=== PATIENT | male | born 1960 | race American Indian/Alaskan Native ===

== ENCOUNTER 2022-06-06 12:00 | Outpatient (CLI) | payer MEDICAID, SELFPAY ==
[2022-06-06 12:20] VITALS: BMI 27.9
--- NOTE | 2022-06-06 12:20 | ECG_ITS ---
[facility] Test Date: 2022-06-06 Pat Name: Davis David Department: Room: Gender: Male Asw/Asuw Tactical Air Controller: Judit Bobo : 1960 Requested By: Nikki Tai Order Number: [id number] Jyotsna MD: Magdiel Kovacs M.D. Interpretive Statements NAME OF STUDY: TREADMILL STRESS TEST INDICATION: [Shortness of Breath] EXERCISE DATA: The patient was exercised by Jona protocol. Baseline heart rate was 63 beats per minute. Baseline blood pressure was 150/84 millimeters of mercury. Target heart rate was 134 beats per minute. Maximum heart rate achieved was 136, which was 101% of the target heart rate. Maximum blood pressure was 228/82 millimeters of mercury. Total exercise time was 8 minutes and 4 seconds. Maximum METs achieved was 10.2. The reason for ending the test was maximal effort achieved. The patient complained of shortness of breath during the stress test, which then resolved at the end of the test. ELECTROCARDIOGRAM: BASELINE: Showed sinus rhythm, normal axis, no significant ST-T changes at the baseline noted. [] EXERCISE: At the peak exercise level, [] No significant ST-T changes suggestive of ischemia noted. [] RECOVERY: During the recovery period, heart rate dropped appropriately. No significant ST-T changes in the recovery suggestive of ischemia noted. [] CONCLUSION: 1. Exercise capacity good 2. Heart rate response was appropriate 3. Blood pressure response was hypertensive 4. Symptoms not suggestive of ischemia. 5. Stress test does not suggest ischemia Electronically Signed On 06-19-2022 15:05:53 CDT by Magdiel Kovacs M.D. [id number]
[2022-06-06 12:55] VITALS: BP 173/77; PULSE 83
== END 2022-06-06 12:01 | disposition home or self-care (01) ==
LOC: CDL 12:02
PROVIDERS: PCP Family Medicine; Visit Provider Physician Assistant
DX: R06.02 Shortness of breath (principal)
CPT/HCPCS: 93017

== ENCOUNTER 2022-07-15 07:18 | Day surgery (SDC) | payer MEDICAID, SELFPAY ==
[2022-07-13 11:47] VITALS: BMI 28.7
[2022-07-15 07:40] VITALS: BP 154/84; PULSE 73; RESP 16; TEMP 36.4; O2SAT 97
[2022-07-15] MEDS: sodium chloride 0.9% 1,000 ML 30 ML IV (08:11)
--- NOTE | 2022-07-15 08:29 | ANES.PREANE2 ---
Pre-Anesthetic Assessment Height/Weight: Height 1.78 m Weight 90.718 kg Temp Pulse Resp BP Pulse Ox O2 Del Method 97.6 F 73 16 154/84 97 Room Air 07/15/22 07:40 07/15/22 07:40 07/15/22 07:40 07/15/22 07:40 07/15/22 07:40 07/15/22 07:40 Operation Date: 07/15/22 09:00 Proposed Procedures p 12706 egd w/balloon dialation 35246 colon R13.10,, Z86.010(Not Applicable) - Luc Byrnes DO s Colonoscopy(Not Applicable) - Luc Byrnes DO Familial anesthetic complications: None Was Beta Apolonia taken within 24 hours: N/A Was Clonidine taken within 24 hours: N/A Last intake: Intake Last Liquid Date 07/14/22 Last Liquid Time 22:00 Last Solid Date 07/13/22 Last Solid Time 21:00 Social No alcohol and No tobacco Exam alert, oriented x 3, clear to auscultation bilaterally and regular rate & rhythm Airway Submandibular: within normal limits Cervical ROM: within normal limits Mallampati: Class II Dentition: full History/ROS No significant history except as noted and No significant complaints Pulmonary None reported CV/HEM Hypertension None reported Hepatic None reported GI Gastroesophageal Reflux Disease (Well controlled with meds, none this am) Metabolic Hyperlipidemia Musc/skel Lower Back Pain Neuropsych None reported Anesthetic Plan ASA status: 1 Anesthesia: Anesthesia Evaluation, General and MAC Risk of > 500 ml blood loss (7ml/kg in children): No Medications/Allergies Home Medications Medication Instructions Recorded Confirmed Last Taken Type atorvastatin 20 mg tablet 20 mg PO DAILY 06/14/22 07/13/22 07/14/22 History lisinopril 10 mg tablet 10 mg PO DAILY 06/14/22 07/13/22 07/14/22 History tamsulosin 0.4 mg capsule 0.4 mg PO DAILY 06/14/22 07/13/22 07/14/22 History pantoprazole 40 mg tablet,delayed 40 mg PO DAILY #30 tabs 07/15/22 Unknown Rx release (Protonix) Allergies Allergy/AdvReac Type Severity Reaction Status Date / Time No Known Allergies Allergy Unverified 07/15/22 07:58 Current Medications Generic Name Dose Route Start Last Admin Trade Name Freq PRN Reason Stop Dose Admin Sodium Chloride 1,000 mls @ 30 mls/hr 07/15/22 07:45 07/15/22 08:11 Sodium Chloride 0.9% IV 07/16/22 07:44 30 mls/hr .Q24H EDEN Administration PFSH Anesthesia Surgical History History of esophagogastroduodenoscopy (EGD) x2 Hx of colonoscopy with polypectomy 5 yrs Hx of left knee surgery x1 Hx of right knee surgery x2 manisus repair Hx of shoulder surgery Right Family History Father Cancer prostate cancer Social History Smoking and tobacco status: never smoked Alcohol intake: current Alcohol intake frequency: holidays/special occasions only Data Anesthesia Cardiac Studies: No Data to Display
--- NOTE | 2022-07-15 09:15 | PM.HP ---
Providers/Chief Complaint Primary Care Provider: Nikki Bob Chief Complaint: R13.10, Z86.010 History of Present Illness Davis David is a 62 year old male here for EGD and colonoscopy Medications/Allergies Home Medications Medication Instructions Recorded Confirmed Last Taken Type atorvastatin 20 mg tablet 20 mg PO DAILY 06/14/22 07/13/22 07/14/22 History lisinopril 10 mg tablet 10 mg PO DAILY 06/14/22 07/13/22 07/14/22 History omeprazole 20 mg capsule,delayed 20 mg PO DAILY 06/14/22 07/13/22 07/14/22 History release tamsulosin 0.4 mg capsule 0.4 mg PO DAILY 06/14/22 07/13/22 07/14/22 History Allergies Allergy/AdvReac Type Severity Reaction Status Date / Time No Known Allergies Allergy Unverified 07/15/22 07:58 PFSH Acute PFSH: Surgical History History of esophagogastroduodenoscopy (EGD) x2 Hx of colonoscopy with polypectomy 5 yrs Hx of left knee surgery x1 Hx of right knee surgery x2 manisus repair Hx of shoulder surgery Right Family History Father Cancer prostate cancer Social History Smoking and tobacco status: never smoked Alcohol intake: current Alcohol intake frequency: holidays/special occasions only Vitals/I&O/Wt Last Vital Signs Temp 97.6 F 07/15/22 07:40 Pulse 73 07/15/22 07:40 Resp 16 07/15/22 07:40 BP 154/84 07/15/22 07:40 Pulse Ox 97 07/15/22 07:40 O2 Del Method Room Air 07/15/22 07:40 Weight last 48 hrs Weight 200 lb A&P Assessment and plan (1) Dysphagia: (2) History of colon polyps: Plan EGD with possible balloon dilation and colonoscopy Attestations Medical Necessity Statement*: Home Coding Level of Care Code Acute Code for Chg Fwd Diagnoses Dysphagia R13.10 History of colon polyps Z86.010
[2022-07-15 09:47] VITALS: BP 83/53; PULSE 52; RESP 16; TEMP 36.1; O2SAT 91
[2022-07-15 10:08] VITALS: BP 104/46; PULSE 54; RESP 18; O2SAT 98
--- NOTE | 2022-07-15 14:20 | ANE.PACU2 ---
Inpatient post-anesthesia follow up: Airway intact: Yes Vital signs: Temperature 97.0 F Pulse Rate 54 Respiratory Rate 18 Blood Pressure 104/46 Pulse Oximetry 98 Oxygen Delivery Me thod Room Air Oxygen Flow Rate 4 Fraction of Inspir ed Oxygen Hydration adequate: Yes Nausea and vomiting: No Pain level: 2 Mental status: Baseline
== END 2022-07-15 10:30 | disposition home or self-care (01) ==
PROVIDERS: PCP Physician Assistant; Visit Provider Surgery
PROC: 0DJD8ZZ Inspection of Lower Intestinal Tract, Via Natural or Artificial Opening Endoscopic (ICD-10-PCS; CPT 45378; 2022-07-15 09:00)
DX: Z12.11 Encounter for screening for malignant neoplasm of colon (principal); R13.10 Dysphagia, unspecified; Z86.010 Personal history of colon polyps; I10 Essential (primary) hypertension; K21.9 Gastro-esophageal reflux disease without esophagitis; E78.5 Hyperlipidemia, unspecified; K22.2 Esophageal obstruction; K31.89 Other diseases of stomach and duodenum
CPT/HCPCS: 43239; 43249; 45378; 88305; J2704; J7030

== ENCOUNTER 2023-02-15 10:16 | Outpatient (CLI) | payer MEDICAID, SELFPAY ==
--- NOTE | 2023-02-15 10:19 | XRR_ITS ---
PROCEDURE INFORMATION: Exam: XR Left Shoulder Exam date and time: 02/15/2023 10:29 AM Age: 62 years old Clinical indication: Pain; Shoulder; Left; Additional info: Pain in left shoulder/stiffness. No history of trauma or recent surgery is provided. TECHNIQUE: Imaging protocol: Radiologic exam of the left shoulder. 2image(s) are provided. Views: 2 or more views. COMPARISON: No relevant prior studies available. FINDINGS: Bones/joints: Osseous alignment is maintained.No displaced fracture or dislocation is appreciated. There is some chronic degeneration about the superolateral aspect of the humeral head. There is some mild chronic degeneration of the acromioclavicular junction along with some subacromial spurring and narrowing. Lungs: No lobar consolidation is appreciated. There is minimal subsegmental atelectasis versus post inflammatory reticulonodular scarring demonstrated. Pleural space: No pneumothorax is appreciated. Soft tissues: No radiopaque foreign body or subcutaneous emphysema is appreciated. XR/XR shoulder LT min 2V* [id number] IMPRESSION: 1. There are chronic appearing degenerative changes of the shoulder suggestive of chronic rotator cuff disease.No fracture or dislocation is appreciated. 2. No lobar type consolidation is appreciated. There does appear to be some reticulonodular type scarring of the included portion of the left hemithorax. Consider two-view chest for further evaluation.
== END 2023-02-15 10:17 | disposition home or self-care (01) ==
LOC: RAD 10:17
PROVIDERS: PCP Nurse Practitioner Family; Visit Provider Nurse Practitioner Family
DX: M25.512 Pain in left shoulder (principal); M25.612 Stiffness of left shoulder, not elsewhere classified
CPT/HCPCS: 73030

== ENCOUNTER 2023-03-10 08:39 | Outpatient (CLI) | payer MEDICAID, SELFPAY ==
--- NOTE | 2023-03-10 08:45 | XR_ITS ---
WS: [id number] Exam: XR chest 2V* [id number] Date/Time of Exam: 03/10/2023 8:46 AM Reason For Exam: Abnormal findings No priors. Lungs are clear and fully inflated. Normal cardiomediastinal silhouette and regional bony elements. S cattered calcified granulomas. IMPRESSION: 1. Negative chest.
== END 2023-03-10 08:40 | disposition home or self-care (01) ==
LOC: RAD 08:42
PROVIDERS: PCP Nurse Practitioner Family; Visit Provider Nurse Practitioner Family
DX: R91.8 Other nonspecific abnormal finding of lung field (principal); R93.89 Abnormal findings on diagnostic imaging of other specified body structures
CPT/HCPCS: 71046

== ENCOUNTER 2023-07-21 06:43 | Outpatient (CLI) | payer MEDICAID, SELFPAY ==
--- NOTE | 2023-07-21 07:15 | MR_ITS ---
WS: [id number] MRI LEFT SHOULDER HISTORY: Chronic pain. COMPARISON: 02/15/2023 TECHNIQUE: Multiplanar sequences of the shoulder joint are submitted. Moderate AC joint arthritis. AC joint is narrowed with fluid. Small acromial and distal clavicular os teophytes encroaching upon the supraspinatus muscle. There is a small amount of fluid in the subacrom ial and subdeltoid bursa. Mild subacromial impingement by an osteophyte. No os acromion. Normal posit ion of the biceps tendon. Mild narrowing of the glenohumeral joint. No rotator cuff muscle atrophy or edema. Moderate tendinopa thy in the distal supraspinatus tendon and there is encroachment by the AC arthropathy. Findings are most consistent with tendinopathy along the articular surface distally but no tear is identified. Tiara faces of the supraspinatus tendon are frayed. Subscapularis tendon is intact. There is mild encroachm ent upon the distal subscapularis tendon by the coracoid osteophyte. Infraspinatus tendon is normal. Intrasubstance degeneration in the posterior labrum. Fraying of the superior and posterior labrum but no definite tear is identified. MR/MR shoulder LT wo con* [id number] IMPRESSION: 1. Moderate AC joint arthritis with encroachment upon the supraspinatus muscle . 2. Mild subacromial impingement. 3. Moderate tendinopathy involving the distal supraspinatus tendon with frayin g along the surfaces. There is no tear identified. 4. Degenerative changes in the labrum but no definite tear. 5. No muscle atrophy or edema.
== END 2023-07-21 06:44 | disposition home or self-care (01) ==
LOC: RAD 06:43
PROVIDERS: PCP Nurse Practitioner Family; Visit Provider Physician Assistant
DX: M75.42 Impingement syndrome of left shoulder (principal); M19.012 Primary osteoarthritis, left shoulder
CPT/HCPCS: 73221

== ENCOUNTER 2024-01-06 09:32 | Emergency (ER) | payer MEDICAID, SELFPAY ==
--- NOTE | 2024-01-06 09:34 | XRR_ITS ---
PROCEDURE INFORMATION: Exam: XR Right Shoulder Exam date and time: 01/06/2024 9:55 AM Age: 63 years old Clinical indication: Injury or trauma; Fall; Blunt trauma (contusions or hematomas); Shoulder; Right; Prior surgery; Surgery date: 6+ months; Surgery type: Rotator cuff TECHNIQUE: Imaging protocol: Radiologic exam of the right shoulder. Views: 2 or more views. COMPARISON: CR XR chest 2V* [id number] 03/10/2023 8:51 AM FINDINGS: Bones/joints: No acute fracture. No dislocation. [id number] acromioclavicular arthritic changes. Mild glenohumeral arthritis. Soft tissues: The soft tissues are unremarkable. XR/XR shoulder RT min 2V* [id number] IMPRESSION: No acute findings.
[2024-01-06 09:42] VITALS: BP 127/78; PULSE 64; RESP 18; TEMP 36.9; O2SAT 98; BMI 27.2
--- NOTE | 2024-01-06 09:43 | W.ED.UPPEXIN ---
HPI - Extremity Injury (Upper) General: Chief Complaint: Extremity Injury, Upper Stated Complaint: Right shoulder injury Time Seen by Provider: 01/06/24 09:35 Source: patient Mode of arrival: ambulatory Limitations: no limitations History of Present Illness: 63-year-old male who states he had history of rotator cuff surgery on his right shoulder in the past. He states that he was digging a trench last night and felt a pop in his right upper arm and shoulder has had pain since and states the pain is a 6 out of 10 its much worse with movement denies any other injuries. Associated symptoms: Denies neck pain Related Data Home Medications Medication Instructions Recorded Confirmed atorvastatin 20 mg tablet 20 mg PO DAILY 06/14/22 09/29/23 lisinopril 10 mg tablet 10 mg PO DAILY 06/14/22 09/29/23 tamsulosin 0.4 mg capsule 0.4 mg PO DAILY 06/14/22 09/29/23 Previous Rx's Medication Instructions Recorded pantoprazole 40 mg tablet,delayed 40 mg PO DAILY #30 tabs 07/15/22 release (Protonix) naproxen 500 mg tablet (Naprosyn) 500 mg PO BID PRN pain #20 tabs 01/06/24 Allergies Allergy/AdvReac Type Severity Reaction Status Date / Time No Known Allergies Allergy Verified 01/06/24 09:48 Review of Systems Const: Denies: fever(s), chills, body aches or change in appetite ENMT: Denies: throat pain or dental pain Card: Denies: chest pain Resp: Denies: dyspnea GI: Denies: abdominal pain, nausea, vomiting or diarrhea Musc: Reports: extremity pain; Denies: neck pain or back pain Skin/Breast: Denies: rash Neuro: Denies: headache(s) PFS ED PFSH: Surgical History Hx of left knee surgery x1 Hx of right knee surgery x2 manisus repair Hx of shoulder surgery Right Hx of colonoscopy with polypectomy 5 yrs History of esophagogastroduodenoscopy (EGD) x2 Family History Father Cancer prostate cancer Social History Smoking and tobacco/nicotine status: never used tobacco/nicotine Alcohol intake: current Alcohol intake frequency: holidays/special occasions only Physical Exam Const: COMMON NORMALS: no acute distress, patient oriented x3 and healthy appearing HENMT: COMMON NORMALS: normocephalic and atraumatic HEAD & SCALP: normocephalic and atraumatic Neck/C-Spine: COMMON NORMALS: full ROM and supple Chest: COMMONS NORMALS: normal inspection of the chest Resp: COMMON NORMALS: normal respiratory effort Extremity: NARRATIVE EXTREMITY EXAM: tenderness over right shoulder no obvious deformity Neuro: COMMON NORMALS: patient oriented x3, moves all extremities and no focal motor deficits Psych: COMMON NORMALS: mental status grossly normal, Normal thought process present and cooperative THOUGHT PROCESS: Normal thought process present Skin: COMMON NORMALS: no rashes or lesions noted and no wounds GENERAL SKIN EXAM: no rashes or lesions noted Course Vital Signs: Vital signs: Vital Signs Temperature 98.4 F 01/06/24 09:42 Pulse Rate 64 01/06/24 09:42 Respiratory Rate 18 01/06/24 09:42 Blood Pressure 127/78 01/06/24 09:42 Pulse Oximetry 98 01/06/24 09:42 Oxygen Delivery Me thod Room Air 01/06/24 09:42 MDM - Extremity Injury (Upper) Medical Decision Making Patient presents here with right shoulder pain likely a strain we will get patient follow-up with orthopedist will prescribe him Naprosyn he is to ice as well no fracture noted on x-ray Medical Records I reviewed the patient's medical records. XR interpretation done by ED provider, pending radiology final review ED provider radiology interpretation(s): xr r shoulder: no acute abnromality Discharge Plan Discharge Patient Disposition: Home Clinical Impression: Right shoulder strain Condition: Stable Prescriptions: New naproxen [Naprosyn] 500 mg tablet 500 mg PO BID PRN (Reason: pain) Qty: 20 0RF No Action tamsulosin 0.4 mg capsule 0.4 mg PO DAILY atorvastatin 20 mg tablet 20 mg PO DAILY lisinopril 10 mg tablet 10 mg PO DAILY Protonix 40 mg tablet,delayed release (DR/EC) 40 mg PO DAILY Qty: 30 11RF Discharge Orders: Discharge ED (Routine); Ordered 01/06/24 Ordered By: Sarahi Abernathy Referrals: Balwinder Snowden DO [Physician] - 4-7 days Morocho,JAZMYNE Lemus [Primary Care Provider] - 4-7 days Discharge Diet: Advance as tolerated Discharge Activity: Resume usual activity Patient Instructions: Shoulder Sprain (ED) Coding Level of Care Code ED Coding And Reimbursement Specialist for Radha Zamorano
[2024-01-06] MEDS: HYDROcodone-acetaminophen 5-325 mg Tablet 1 TAB PO (09:51)
[2024-01-06 10:23] VITALS: BP 127/78; PULSE 63; O2SAT 94
--- NOTE | 2024-01-08 09:00 | DCPLANNER ---
messaged ortho for er f/u
== END 2024-01-06 10:24 | disposition home or self-care (01) ==
PROVIDERS: Emergency Provider Emergency Medicine; PCP Nurse Practitioner Family
DX: S46.911A Strain of unspecified muscle, fascia and tendon at shoulder and upper arm level, right arm, initial encounter (principal); X58.XXXA Exposure to other specified factors, initial encounter
CPT/HCPCS: 73030; 99283

== ENCOUNTER → 2024-01-30 15:05 | Outpatient (BNVA) | payer MEDICAID, SELFPAY | PROVIDERS: PCP Nurse Practitioner Family; Visit Provider Orthopaedic Surgery | DX: M54.2 Cervicalgia (principal); S46.919A Strain of unspecified muscle, fascia and tendon at shoulder and upper arm level, unspecified arm, initial encounter; M25.511 Pain in right shoulder; X58.XXXA Exposure to other specified factors, initial encounter | CPT/HCPCS: 72050; 73030 ==

== ENCOUNTER 2024-02-09 07:39 | Outpatient (CLI) | payer MEDICAID, SELFPAY ==
--- NOTE | 2024-02-09 08:00 | MR_ITS ---
WS: [id number] MRI RIGHT SHOULDER HISTORY: shoulder strain, history of rotator cuff repair in 2019. COMPARISON: Radiograph 01/30/2024 TECHNIQUE: Multiplanar sequences of the shoulder joint are submitted. Micrometallic artifacts in the soft tissues surrounding the shoulders and anchors in the humeral head from prior rotator cuff repair. Moderate AC joint arthritis. Cystic changes in the distal clavicle and the acromion. Small amount of fluid in the subacromial and subdeltoid bursa. Mild subacromial impingement. Acromion is downsloping. No os acromion. Biceps tendon is not identified in the bicipital groove. Small caliber distal supraspinatus tendon with heterogeneous signal. Tendon does not appear to be tor n or retracted. Infraspinatus tendon with mild heterogeneity distally but no tear. No subscapularis t ear. Tendinopathy in the distal subscapularis tendon near the lesser tuberosity. Degenerative intrasu bstance changes in the labrum. No labral tear. MR/MR shoulder RT wo con* [id number] IMPRESSION: 1. Status post prior rotator cuff repair. 2. Supraspinatus tendon is small caliber and heterogeneous but intact. No retr action of the tendon or tear identified. There is a small amount of fluid withi n the distal tendon which may represent an intrasubstance tear. 3. Moderate AC joint arthritis. 4. Biceps tendon is not identified in the bicipital groove. Biceps tendon is p robably torn and retracted. The retracted tendon is not definitely identified.
== END 2024-02-09 07:40 | disposition home or self-care (01) ==
LOC: RAD 07:40
PROVIDERS: PCP Nurse Practitioner Family; Visit Provider Orthopaedic Surgery
DX: M19.011 Primary osteoarthritis, right shoulder (principal); Z98.890 Other specified postprocedural states; R93.7 Abnormal findings on diagnostic imaging of other parts of musculoskeletal system
CPT/HCPCS: 73221

== ENCOUNTER 2024-04-27 12:46 | Emergency (ER) | payer MEDICAID, SELFPAY ==
[2024-04-27 12:50] VITALS: BP 144/77; PULSE 69; RESP 14; TEMP 36.6; O2SAT 96; BMI 27.9
--- NOTE | 2024-04-27 13:38 | XRR_ITS ---
PROCEDURE INFORMATION: Exam: XR Right Finger(s) Exam date and time: 04/27/2024 2:00 PM Age: 63 years old Clinical indication: Injury or trauma; Finger; Right; Laceration to distal RT thumb TECHNIQUE: Imaging protocol: Radiologic exam of the right fingers. Views: Minimum 2 views. COMPARISON: No relevant prior studies available. FINDINGS: Bones/joints: Chip fracture seen along the palmar or anterior base of the distal phalanx of the 1st thumb finger digit involving the IP joint. This is marked with an arrow and best appreciated on the lateral view. Soft tissues: Soft tissue laceration like changes are seen along the palmar anterior aspect of the thumb digit. XR/XR finger RT min 2V [id number] IMPRESSION: 1. Chip fracture IP joint of the thumb, as described. 2. Laceration soft tissue changes of this digit also noted.
--- NOTE | 2024-04-27 13:46 | W.ED.WOUNDLC ---
HPI - Wound/Laceration General: Chief Complaint: Wound/Laceration Stated Complaint: thumb on right hand cut Time Seen by Provider: 04/27/24 13:35 History of Present Illness: 63-year-old male patient comes in today for injury to the right thumb. Patient was using a table saw today and excellently cut the pad of his right thumb. Examination notes a flap laceration to the thumb. Irregular. Patient reports his tetanus shot is up-to-date. Patient appears nontoxic. Related Data Home Medications ?Medication ?Instructions ?Recorded ?Confirmed tamsulosin 0.4 mg capsule 0.4 mg PO DAILY 06/14/22 04/27/24 losartan 100 mg tablet 100 mg PO DAILY 01/06/24 04/27/24 atorvastatin 40 mg tablet 40 mg PO QPM 04/27/24 04/27/24 triamcinolone acetonide 0.1 % See Rx Instructions .Route .COMPLEX 04/27/24 04/27/24 topical ointment Previous Rx's ?Medication ?Instructions ?Recorded pantoprazole 40 mg tablet,delayed 40 mg PO DAILY #30 tabs 07/15/22 release (Protonix) amoxicillin 875 mg-potassium 1 tab PO BID #14 tabs 04/27/24 clavulanate 125 mg tablet hydrocodone 5 mg-acetaminophen 325 1 tab PO Q6H PRN pain #10 tabs 04/27/24 mg tablet Allergies Allergy/AdvReac Type Severity Reaction Status Date / Time No Known Allergies Allergy Verified 04/17/24 10:14 Review of Systems General: Reports: 10 or more systems reviewed and unremarkable except in HPI and below PFSH ED PFSH: Surgical History Hx of left knee surgery x1 Hx of right knee surgery x2 manisus repair Hx of shoulder surgery Right Hx of colonoscopy with polypectomy 5 yrs History of esophagogastroduodenoscopy (EGD) x2 Family History Father Cancer prostate cancer Social History Smoking and tobacco/nicotine status: never used tobacco/nicotine Alcohol intake: current Alcohol intake frequency: holidays/special occasions only Physical Exam Const: COMMON NORMALS: alert HENMT: COMMON NORMALS: normocephalic HEAD & SCALP: normocephalic Neck/C-Spine: COMMON NORMALS: full ROM Resp: COMMON NORMALS: clear to auscultation bilaterally AUSCULTATION: clear to auscultation bilaterally Cardio: COMMON NORMALS: regular rate and regular rhythm RATE: regular rate RHYTHM: regular rhythm GI: COMMON NORMALS: non-tender Back/Pelvis: COMMON NORMALS: thoracic and lumbar spine normal to inspection Extremity: RIGHT UPPER EXTREMITY: Yes hand & digits (Flap laceration to the pad of the distal thumb) Neuro: SENSORIUM/ORIENTATION: Yes alert Skin: NARRATIVE SKIN EXAM: Laceration to the distal palm Course Vital Signs: Vital signs: Vital Signs Temperature 97.8 F 04/27/24 12:50 Pulse Rate 69 04/27/24 12:50 Respiratory Rate 14 04/27/24 12:50 Blood Pressure 144/77 04/27/24 12:50 Pulse Oximetry 96 04/27/24 12:50 Oxygen Delivery Me thod Room Air 04/27/24 12:50 MDM - Wound/Laceration Medical Decision Making 63-year-old male patient comes in today for injury to the distal thumb. Patient has a irregular laceration to the distal thumb that is causing a irregular flap. Patient has normal range of motion of the thumb. Patient reports up-to-date on his tetanus. Differential diagnosis includes fracture, foreign body, laceration. Injury was extended into the subcutaneous tissue but not to the bone. 4 sutures were used to close the wound. X-ray noted no obvious bony injury although there was a osseous abnormality to the proximal distal phalanx which could be suspected for a flexor injury. Patient be covered with Ancef and started on Augmentin. Recommend follow-up with primary care and/or employment training specialist. Patient reported understanding agreed to plan. XR interpretation done by ED provider, pending radiology final review Discharge Plan Discharge Patient Disposition: Home Clinical Impression: Fracture of distal phalanx of finger of right hand Laceration of thumb, right Qualifiers: Encounter type: initial encounter Damage to nail status: without damage Foreign body presence: without foreign body Qualified Code(s): S61.011A - Laceration without foreign body of right thumb without damage to nail, initial encounter Condition: Stable Prescriptions: New hydrocodone-acetaminophen 5-325 mg tablet 1 tab PO Q6H PRN (Reason: pain) Qty: 10 0RF Rx Instructions: DX: finger fracture, laceration thumb amoxicillin-pot clavulanate 875-125 mg tablet 1 tab PO BID Qty: 14 0RF No Action tamsulosin 0.4 mg capsule 0.4 mg PO DAILY losartan 100 mg tablet 100 mg PO DAILY atorvastatin 40 mg tablet 40 mg PO QPM triamcinolone acetonide 0.1 % ointment See Rx Instructions .ROUTE .COMPLEX Rx Instructions: APPLY TO RASH ON FOREARMS TWICE DAILY NEEDED. NO MORE THAN TWO WEEKS PER MONTH. NOT FOR USE ON FACE, GROIN OR SKIN FOLDS. pantoprazole [Protonix] 40 mg tablet,delayed release (DR/EC) 40 mg PO DAILY Qty: 30 11RF Discharge Orders: Discharge ED (Routine); Ordered 04/27/24 Ordered By: Octavio Mccabe Referrals: Mariah Morocho FNP [Primary Care Provider] - Discharge Diet: Usual diet Discharge Activity: Increase activity as tolerated Patient Instructions: Finger Laceration (ED) Activity Restrictions/Additional Instructions: Keep wound clean and dry. Keep the wound as dry as possible. Take antibiotics as directed. Use acetaminophen ibuprofen to help with pain. Use hydrocodone for severe pain. Follow-up with primary care in 3 to 5 days. Return to ED for new concerns. Print Language: Vincentian Coding Level of Care Code ED Tone Cabinet Assembler for Radha Zamorano
[2024-04-27] MEDS: lidocaine-epi 1% 20 mL INJ INJECTION (13:59)
[2024-04-27] MEDS: ceFAZolin 1,000 MG in water for injection-sterile 2.5 ML 2.5 MG IM (14:30)
[2024-04-27 14:41] VITALS: BP 138/78; PULSE 67; O2SAT 97
== END 2024-04-27 14:43 | disposition home or self-care (01) ==
PROVIDERS: Emergency Provider Nurse Practitioner Family; PCP Nurse Practitioner Family
DX: S61.011A Laceration without foreign body of right thumb without damage to nail, initial encounter (principal); S62.521A Displaced fracture of distal phalanx of right thumb, initial encounter for closed fracture; X58.XXXA Exposure to other specified factors, initial encounter
CPT/HCPCS: 73140; 96372; 99284; J0690